=== PATIENT | female | born 1945 | race Caucasian/White ===

== ENCOUNTER → 2016-06-07 | Outpatient (CLI) | payer BC ==
--- NOTE | 2016-06-07 10:35 | DIAGNOSTIC IMAGING REPORT ---
ABDOMEN COMPLETE (US) CLINICAL HISTORY: Generalized abdominal pain lower quadrant pain COMPARISON STUDY: No previous studies for comparison. FINDINGS: The pancreas appears sonographically normal. No focal hepatic masses are visualized. There is no ductal dilatation. There is diffuse shadowing from the gallbladder fossa. While likely representing a stone filled gallbladder, gallbladder wall calcification cannot be excluded. There is no ductal dilatation. The common bile duct measures 6 mm. There is no evidence of abdominal aortic dilatation. The IVC appears patent. No splenic abnormalities are visualized. The right kidney measures 10.7 cm in length. The left kidney measures 11.5 cm in length. There are left renal parapelvic cysts. There is no significant hydronephrosis. There are tiny echogenic foci within the mid to lower pole the right kidney, likely representing vascular reflectors. The patient reports lower abdominal pain. A brief survey of the lower abdomen reveal no significant abnormalities IMPRESSION: 1. Probable stone filled gallbladder although gallbladder wall calcification could appear similar 2. No evidence of ductal dilatation 3. Normal pancreas 4. No evidence of significant hydronephrosis Electronically signed by: Steven Lott M.D. 06/07/2016 10:33 AM Dictated Date/Time: 06/07/2016 10:29 AM
== END | disposition home or self-care (01) ==
LOC: C.ULTR 08:28
PROVIDERS: ATTEND Physician Assistant
DX: R10.31 Right lower quadrant pain (principal); R10.32 Left lower quadrant pain; R93.2 Abnormal findings on diagnostic imaging of liver and biliary tract

== ENCOUNTER → 2016-11-11 | Outpatient (CLI) | payer BC ==
[~2016-11-11] MED LIST: OPTIRAY 320 IV PRN
--- NOTE | 2016-11-11 15:28 | DIAGNOSTIC IMAGING REPORT ---
ABD/PELVIS IV AND ORAL CONT CLINICAL HISTORY: 71 years-old Female presenting with R10.31 Abdominal pain, bilateral lower quadrant. TECHNIQUE: Multidetector CT of the abdomen and pelvis was performed after the administration of oral and intravenous contrast. IV contrast: 93 mL of Optiray 320. A dose lowering technique was used consistent with the principles of ALARA (as low as reasonably achievable). COMPARISON: Ultrasound from 06/07/2016. CT DOSE (mGy.cm): The estimated cumulative dose is 973.30 mGycm. FINDINGS: [employer] Intern topogram: Unremarkable. Lung bases: Minimal dependent changes likely atelectasis. Normal heart size. No pericardial or pleural effusion. Liver: Normal morphology. No liver lesion. Patent hepatic vasculature. Biliary: No intrahepatic or extrahepatic biliary ductal dilatation. Gallbladder contains gallstones. Pancreas: Mild parenchymal atrophy. Spleen: Normal. Adrenal glands: Normal. Kidneys and ureters: Nonobstructing punctate calculus at the left upper pole. Additional nonobstructing punctate calculus at the left lower pole. No hydronephrosis. Subcentimeter hypodensity at the lower pole the right kidney is likely simple cyst. Ureters normal. Bladder: Normal. Pelvic organs: Fibroid uterus. Normal ovaries. Bowel: Diverticulosis of the proximal sigmoid colon. Normal appendix. No bowel obstruction. Peritoneal cavity: No free fluid or intraperitoneal gas. Vasculature: Atherosclerosis of the normal caliber abdominal aorta. IVC patent. Lymph nodes: No enlarged lymph nodes in the abdomen or pelvis. Abdominal wall: Diastasis of the rectus abdominis. Musculoskeletal: Normal. IMPRESSION: 1. No acute intra-abdominal pathology. 2. Diverticulosis. 3. Cholelithiasis. Electronically signed by: Justin Jimenez M.D. 11/11/2016 3:27 PM Dictated Date/Time: 11/11/2016 3:21 PM
== END | disposition home or self-care (01) ==
LOC: EDSTATUS 10:40 → C.CTS 12:58
PROVIDERS: ATTEND Internal Medicine
DX: R10.31 Right lower quadrant pain (principal); R10.32 Left lower quadrant pain; K57.30 Diverticulosis of large intestine without perforation or abscess without bleeding; K80.20 Calculus of gallbladder without cholecystitis without obstruction

== ENCOUNTER → 2016-11-15 | Day surgery (SDC) | payer BC ==
[2016-11-07 13:52] VITALS: BMI 33.0
[~2016-11-15] VITALS: Ht 170.2 cm; Wt 96.8 kg
[~2016-11-15] MED LIST changes: +LIDOCAINE HCL 2% 2 ML VIAL (20MG/ML) ONE; -OPTIRAY 320 IV PRN; +PROPOFOL IV EMULSION 10 MG/ML 20 ML VIAL IV ONE; +SODIUM CHLORIDE 0.9% 500ML 500 ML IV ONE
[2016-11-15 09:51] VITALS: Ht 170.2 cm; Wt 96.8 kg
--- NOTE | 2016-11-15 10:45 | Endo History and Physical ---
History & Physical Date of Service: Nov 15, 2016. Chief Complaint: abd pain Referring Physician: Dr. Gibson History of Present Illness 71 yo CF who presents for colonoscopy secondary to abdominal pain. Past Surgical History Hx Cardiac Surgery: Yes (HEART CATH, NO STENTS) Hx Internal Defibrillator: No Hx Pacemaker: No Hx Abdominal Surgery: Yes ("HAIR BALL" REMOVAL) Hx of Implantable Prosthesis: No Hx Post-Op Nausea and Vomiting: No Hx Cancer Surgery: Yes (BCC REMOVAL) Hx Thoracic Surgery: No Hx Orthopedic: No Hx Urinary Tract Surgery: No Family History None Social History Smoking Status: Former Smoker Hx Substance Use: No Hx Alcohol Use: Yes (OCCASIONAL) Allergies Coded Allergies: Cephalexin (Verified Allergy, Unknown, RASH, 11/07/16) Current Medications Reported Home Medications Medications Dose Route/Sig Max Daily Dose Days Date Category No Active Prescriptions or Reported Medications Rx Vital Signs Weight (Kilograms): 96.82 Height (Feet): 5 Height (Inches): 7 Date Time Temp Pulse Resp B/P (MAP) Pulse Ox O2 Delivery O2 Flow Rate FiO2 11/15/16 10:07 36.8 60 18 159/64 (95) 98 Room Air Physical Exam General Appearance: WD/WN, no apparent distress Respiratory/Chest: Auscultation: breath sounds normal Cardiovascular: Heart Auscultation: RRR Abdomen: Bowel Sounds: normal Inspection & Palpation: soft, non-distended, no tenderness, guarding & rebound Assessment and Plan Assessment: 71 yo CF who presents for colonoscopy secondary to abdominal pain. Plan: Proceed with colonoscopy.
--- NOTE | 2016-11-15 11:14 | GI REPORT ---
Procedure Date: 11/15/2016 10:43 AM Procedure: Colonoscopy Indications: Generalized abdominal pain Medicines: Monitored Anesthesia Care Complications: No immediate complications. Estimated Blood Loss: Estimated blood loss: none. Procedure: Pre-Anesthesia Assessment: - Prior to the procedure, a History and Physical was performed, and patient medications and allergies were reviewed. The patient's tolerance of previous anesthesia was also reviewed. The risks and benefits of the procedure and the sedation options and risks were discussed with the patient. All questions were answered, and informed consent was obtained. Prior Anticoagulants: The patient has taken no previous anticoagulant or antiplatelet agents. ASA Grade Assessment: II - A patient with mild systemic disease. After reviewing the risks and benefits, the patient was deemed in satisfactory condition to undergo the procedure. After I obtained informed consent, the scope was passed under direct vision. Throughout the procedure, the patient's blood pressure, pulse, and oxygen saturations were monitored continuously. The scope was introduced through the anus and advanced to the terminal ileum. The colonoscopy was performed without difficulty. The patient tolerated the procedure well. The quality of the bowel preparation was good. The terminal ileum, ileocecal valve, appendiceal orifice, and rectum were photographed. Findings: A 4 mm polyp was found in the cecum. The polyp was sessile. The polyp was removed with a cold snare. Resection and retrieval were complete. A 10 mm polyp was found in the sigmoid colon. The polyp was pedunculated. The polyp was removed with a hot snare. Resection and retrieval were complete. Multiple small-mouthed diverticula were found in the sigmoid colon. Non-bleeding internal hemorrhoids were found during retroflexion. The hemorrhoids were small. Impression: - One 4 mm polyp in the cecum, removed with a cold snare. Resected and retrieved. - One 10 mm polyp in the sigmoid colon, removed with a hot snare. Resected and retrieved. - Diverticulosis in the sigmoid colon. - Non-bleeding internal hemorrhoids. Recommendation: - Resume previous diet. - Continue present medications. - Repeat colonoscopy for surveillance based on pathology results. - Return to primary care physician as previously scheduled. Colton Salguero DO 11/15/2016 11:14:06 AM This report has been signed electronically. Note Initiated On: 11/15/2016 10:43 AM I attest to the content of the Intraoperative Record and orders documented therein, exceptions below
--- NOTE | 2016-11-15 11:16 | Discharge Instructions ---
Endoscopy Patient Instructions Date / Procedure(s) Performed Nov 15, 2016. Colonoscopy Allergy Information Coded Allergies: Cephalexin (Verified Allergy, Unknown, RASH, 11/07/16) Discharge Date / Findings Nov 15, 2016. Colon polyps Diverticulosis Internal hemorrhoids Medication Instructions OK to resume all medications today as prescribed Reported Home Medications Medications Dose Route/Sig Max Daily Dose Days Date Category No Active Prescriptions or Reported Medications Rx Provider Instructions Activity Restrictions - No exercising or heavy lifting for 24 hours. - Do not drink alcohol the day of the procedure. - Do not drive a car or operate machinery until the day after the procedure. - Do not make any important decisions or sign important papers in 24 hours after the procedure. Following Day: - Return to full activity which may include returning to work/school. Diet Start your diet with liquids and light foods (jello, soup, juice, toast). Then eat your usual diet if not nauseated. Treatment For Common After Affects For mild abdominal pain, bloating, or excessive gas: - Rest - Eat lightly - Lie on right side Follow-Up Information Follow-up with Dr. Gibson as scheduled Anesthesia Information What You Should Know You have had a procedure that required some medicine to reduce anxiety and discomfort. This treatment is called moderate sedation. After receiving the treatment, you may be sleepy, but you will be able to breathe on your own. The effects of the treatment may last for several hours. Follow these instructions along with Activity/Diet recommendations noted above: * Do NOT do anything where dizziness or clumsiness would be dangerous. * Rest quietly at home today, then you can be up and about tomorrow. * Have a responsible person stay with you the rest of today. * You may have had an I.V. today. If so, you may take the dressing off later today. Recommendations Call your doctor if: * Trouble breathing * Continuous vomiting for more than 24 hours * Temperature above 101 degrees * Severe abdominal pain or bloating * Pain not relieved by pain medicine ordered * There is increased drainage or redness from any incision * A large amount of rectal bleeding greater than 2-3 tablespoons. (If you had a polyp/s removed or have hemorrhoids, a small amount of blood - from the rectum is to be expected.) * You have any unanswered questions or concerns. IN THE EVENT OF A SERIOUS EMERGENCY, GO TO THE NEAREST EMERGENCY ROOM Your discharge instructions were prepared by provider Colton Salguero. Patient Instructions Signature Page Terri Pina Patient (or Guardian) Signature/Date: I have read and understand the instructions given to me by my caregivers. Caregiver/RN/Doctor Signature/Date: The above-named patient and/or guardian has received patient instructions on this date. + Original Patient Signature Page (only) stays with chart. Please make copy for patient.
[2016-11-15 11:47] VITALS: BP 124/77; PULSE 50; O2SAT 98
--- NOTE | 2016-11-15 12:51 | Anesthesiology Progress Note ---
Anesthesia Post Op Note Date & Time Nov 15, 2016 at 12:51 Vital Signs Pain Intensity: 0 Vital Signs Past 12 Hours Date Time Temp Pulse Resp B/P (MAP) Pulse Ox O2 Delivery O2 Flow Rate FiO2 11/15/16 11:47 50 18 124/77 (93) 98 Room Air 11/15/16 11:33 78 18 118/76 (90) 98 Room Air 11/15/16 11:18 36.2 78 18 104/82 (89) 98 Room Air 11/15/16 10:07 36.8 60 18 159/64 (95) 98 Room Air Notes Mental Status: alert / awake / arousable, participated in evaluation Pt Amnestic to Procedure: Yes Nausea / Vomiting: adequately controlled Pain: adequately controlled Airway Patency, RR, SpO2: stable & adequate BP & HR: stable & adequate Hydration State: stable & adequate Anesthetic Complications: no major complications apparent
== END | disposition home or self-care (01) ==
LOC: C.GI 09:37
PROVIDERS: ATTEND Internal Medicine
DX: D12.0 Benign neoplasm of cecum (principal); D12.5 Benign neoplasm of sigmoid colon; K57.30 Diverticulosis of large intestine without perforation or abscess without bleeding; K64.8 Other hemorrhoids; Z87.891 Personal history of nicotine dependence

== ENCOUNTER → 2016-12-05 | Outpatient (CLI) | payer BC | END | disposition home or self-care (01) | LOC: C.PATHSPEC 14:58 | PROVIDERS: ATTEND Obstetrics & Gynecology | DX: N84.1 Polyp of cervix uteri (principal); N88.8 Other specified noninflammatory disorders of cervix uteri ==